=== PATIENT | female | born 1960 | race Caucasian/White ===

== ENCOUNTER 2023-01-30 06:03 | Day surgery (SDC) | payer OTHER ==
[2023-01-29 15:01] LABS: BASOPHILS # (AUTO) 0.1 X10'3 (0-0.2); BASOPHILS % (AUTO) 0.6 % (0-1); EOSINOPHILS # (AUTO) 0.1 X10'3 (0-0.9); EOSINOPHILS % (AUTO) 1.9 % (0-6); HEMOGLOBIN 14.7 g/dl (12.0-16.0); LYMPHOCYTES # (AUTO) 1.5 X10'3 (1.1-4.8); LYMPHOCYTES % (AUTO) 18.5 % (21-51); MEAN CORPUSCULAR HEMOGLOBIN 29.3 PG (27.0-31.0); MEAN CORPUSCULAR HGB CONC 34.2 g/dL (33.0-36.5); MEAN CORPUSCULAR VOLUME 85.7 FL (78-98); MONOCYTES # (AUTO) 0.6 X10'3 (0-0.9); MONOCYTES % (AUTO) 7.9 % (2-12); NEUTROPHILS # (AUTO) 5.6 X10'3 (1.8-7.7); NEUTROPHILS % (AUTO) 71.1 % (42-75); PLATELET COUNT 307 X10'3 (140-440); RED BLOOD COUNT 5.02 X10'6 (4.20-5.60); WHITE BLOOD COUNT 7.9 X10'3 (4.5-11.0)
[2023-01-29 15:04] LABS: APTT 27 SECONDS (22-32)
[2023-01-29 15:06] LABS: ALBUMIN 3.9 G/DL (3.4-5.0); ANION GAP 10 (8-16); BLOOD UREA NITROGEN 19 MG/DL (7-18); BUN/CREATININE RATIO 20.4 (10.0-20.0); CALCIUM 9.9 MG/DL (8.5-10.1); CHLORIDE 99 MMOL/L (99-107); CREATININE 0.93 MG/DL (0.40-0.90); GLUCOSE 323 MG/DL (70-104); POTASSIUM 3.3 MMOL/L (3.5-5.1); SODIUM 137 MMOL/L (135-145); TOTAL CARBON DIOXIDE 28.4 MMOL/L (24-32); eGFR 61 ML/MIN
[~2023-01-30] VITALS: Ht 152.4 cm; Wt 73.4 kg
[2023-01-30] VITALS (13 sets, daily range): BP systolic 91–143; BP diastolic 41–83
[2023-01-30] MEDS ORDERED: LORazepam 0.5 MG tablet PO PRN (06:25)
[2023-01-30] MEDS ORDERED: normal saline 1,000 ML IV SCH (06:25)
[2023-01-30] MEDS ORDERED: diphenhydrAMINE 25mg capsule PO PRN (06:25)
[2023-01-30] MEDS ORDERED: OMEP20CA16 PO (06:51)
[2023-01-30] MEDS ORDERED: NOVLG SQ (06:51)
[2023-01-30] MEDS ORDERED: INSU100I27 SQ (06:51)
[2023-01-30] MEDS ORDERED: AMLO10TA13 PO (06:51)
[2023-01-30] MEDS ORDERED: MULT-1085 PO (07:10)
[2023-01-30] MEDS ORDERED: DAND525C (07:10)
[2023-01-30] MEDS ORDERED: VITC500T PO (07:10)
[2023-01-30] MEDS ORDERED: CHOL200074 PO (07:10)
[2023-01-30] MEDS ORDERED: MAGN250T11 PO (07:10)
[2023-01-30] MEDS ORDERED: VALS1TAB76 PO (07:13)
[2023-01-30] MEDS ORDERED: midazolam 1 mg/ML 2ml injection ONE (07:23)
[2023-01-30] MEDS ORDERED: iohexol 350MG/ML 100ml bottle IV ONE ×2 (07:23→08:41)
[2023-01-30] MEDS ORDERED: fentaNYL/PF 50MCG/1 ML 2ML syringe ONE (07:23)
[2023-01-30] MEDS ORDERED: LIDOcaine 1% 30ml preserv. free vial ONE (07:23)
[2023-01-30] MEDS ORDERED: iohexol 350 MG/ML 50ML vial IV ONE (07:23)
[2023-01-30] MEDS ORDERED: LIDOcaine 1% (10mg/ml) 2ml vial ONE (07:38)
[2023-01-30] MEDS ORDERED: verapamil 2.5 mg/ml inj IV ONE (07:38)
[2023-01-30] MEDS ORDERED: nitroGLYCERIN-Tridil 50MG/D5W 250 ML IV ONE (07:38)
[2023-01-30] MEDS ORDERED: heparin 1,000unit/ml 10ml vial 10 ML ONE (07:38)
--- NOTE | 2023-01-30 07:53 | NUR ---
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
[2023-01-30] MEDS ORDERED: potassium Cl 20 mEq SR tablet PO STA (09:24)
== END 2023-01-30 15:45 | disposition home or self-care (01) ==
LOC: SSTAY O 06:03
PROVIDERS: ATTEND Internal Medicine Cardiovascular Disease
DX: R94.39 Abnormal result of other cardiovascular function study (principal); I25.10 Atherosclerotic heart disease of native coronary artery without angina pectoris; I10 Essential (primary) hypertension; E78.5 Hyperlipidemia, unspecified; E11.9 Type 2 diabetes mellitus without complications; Z79.899 Other long term (current) drug therapy; Z79.4 Long term (current) use of insulin; Z79.01 Long term (current) use of anticoagulants; Z98.890 Other specified postprocedural states; Z90.710 Acquired absence of both cervix and uterus; Z88.8 Allergy status to other drugs, medicaments and biological substances; Z88.1 Allergy status to other antibiotic agents; Z83.3 Family history of diabetes mellitus; Z82.49 Family history of ischemic heart disease and other diseases of the circulatory system
CPT/HCPCS: 36415; 80048; 82948; 84132; 85025; 85610; 85730; 93005; 93458; 99152; 99153; A6258; C1751; C1894; J1644; J2250; J3010; J3490; J7030; Q0163; Q9967; A6402; C1725